=== PATIENT | female | born 1965 | race Caucasian/White ===

== ENCOUNTER 2017-01-25 10:17 | Day surgery (SDC) | payer MEDICARE ==
[2017-01-19 20:35] LABS: HEMATOCRIT 40.8 % (36.0-48.0); HEMOGLOBIN 13.2 g/dL (12.0-16.0)
[2017-01-19 20:59] LABS: BUN (BLOOD UREA NITROGEN) 15 MG/DL (6-23); CALCIUM, SERUM 8.5 MG/DL (8.5-10.4); CHLORIDE, SERUM 104 MMOL/L (96-112); CO2 (CARBON DIOXIDE) 29 MMOL/L (24-34); CREATININE 0.62 MG/DL (0.55-1.02); GFR AFRICAN AMERICAN 123 ML/MIN (>=60); GFR NON AFRICAN AMERICAN 106 ML/MIN (>=60); GLUCOSE, SERUM 216 MG/DL (60-99); SODIUM, SERUM 142 MMOL/L (135-148)
[~2017-01-25 10:17] MED LIST: AMARYL4 PO; CO Q-10100 MG PO; CONSTULOSE PO; GLUCPH PO; KLOR-CON M2020 MEQ PO; L40 PO; PEPCID40 MG PO; URSO250 PO; VITE PO; X5 PO; ZOL50 PO
[2017-07-29] MEDS ORDERED: [UNRECOGNIZED DRUG - OTHER] PO (14:27)
[2017-07-29] MEDS ORDERED: PROTONIX PO (14:30)
[2017-07-29] MEDS ORDERED: JANUVIA50 PO (14:31)
== END 2017-01-25 23:59 | disposition home or self-care (01) ==
LOC: IMGHOLD 10:17
PROVIDERS: Transplant Surgery
DX: D13.4 Benign neoplasm of liver (principal); G47.30 Sleep apnea, unspecified; K21.9 Gastro-esophageal reflux disease without esophagitis; F17.210 Nicotine dependence, cigarettes, uncomplicated; Z90.49 Acquired absence of other specified parts of digestive tract; Z90.710 Acquired absence of both cervix and uterus
CPT/HCPCS: 36415; 74183; 80048; 85014; 85018; A9581